=== PATIENT | female | born 1990 | race African-American/Black ===

== ENCOUNTER 2017-09-09 12:05 | Emergency (ER) | payer OTHER ==
[2017-09-09 12:19] VITALS: BMI 28.9
[2017-09-09] MEDS ORDERED: morphine CARPU-JECT 4 MG/1 ML DISP.SYRIN IVPUSH ONE (12:29)
[2017-09-09] MEDS ORDERED: SODIUM CHLORIDE 1,000 ML IV ONE (12:29)
[2017-09-09] MEDS ORDERED: ONDANSETRON 4 MG/2 ML VIAL IVPB ONE (12:29)
[2017-09-09] MEDS ORDERED: ONDANSETRON 4 MG/2 ML VIAL ONE (12:40)
[2017-09-09 12:44] LABS: BASO % 0.3 % (0-2.0); EOS % 2.1 % (0-4.5); HEMATOCRIT 36.2 % (32.4-45.2); HEMOGLOBIN 11.6 GM/dL (10.7-15.3); LYMPH % 35.6 % (8-40); MCH 26.4 pg (25.7-33.7); MCHC 32.2 g/dl (32.0-36.0); MEAN CELL VOLUME 82.1 fl (80-96); MEAN PLT VOLUME 8.9 fl (7.5-11.1); MONO % 7.7 % (3.8-10.2); NEUT % 54.3 % (42.8-82.8); PLATELET COUNT 275 K/MM3 (134-434); RBC 4.41 M/mm3 (3.60-5.2); RDW 13.2 % (11.6-15.6); WHITE BLOOD COUNT 5.2 K/mm3 (4.0-10.0)
--- NOTE | 2017-09-09 12:45 | PDOC ---
History of Present Illness - General History Source: Patient Exam Limitations: No Limitations - History of Present Illness Initial Comments: 09/09/17 12:49 The patient is a 27 year old female, with a significant PMH of gallstones, who presents to the emergency department via EMS complaining of abdominal pain. The patient states that she was at work when her pain began. She describes the pain as constant, located in the right upper quadrant, sharp in sensation, 10/10 in severity, radiating to her back, and exacerbated with deep inspiration and when she lies flat. Patient reports she threw up several times today, nonbloody and nonbilious, and notices a decrease in appetite. Patient notes pain is similar to the gallbladder attack 1 year ago where she stayed in the hospital for 4 days and was put on a low fat diet. The patient denies chest pain, shortness of breath, headache and dizziness. Denies fever, chills, diarrhea and constipation. Denies dysuria, frequency, urgency and hematuria. Allergies: NKDA, Seasonal allergies Past surgical history: None reported Social history: None reported PCP: None reported <Neetu Anguiano - Last Filed: 09/09/17 12:49> <Starla Bai - Last Filed: 09/09/17 15:55> <Juan Miguel Heard - Last Filed: 09/09/17 16:44> - General Chief Complaint: Pain, Acute Stated Complaint: ABD PAIN Time Seen by Provider: 09/09/17 12:13 Past History <Neetu Anguiano - Last Filed: 09/09/17 12:49> <Starla Bai - Last Filed: 09/09/17 15:55> - Suicide/Smoking/Psychosocial Hx Smoking History: Never smoked Hx Alcohol Use: No Drug/Substance Use Hx: No <Juan Miguel Heard - Last Filed: 09/09/17 16:44> - Past Medical History Allergies/Adverse Reactions: Allergies Allergy/AdvReac Type Severity Reaction Status Date / Time No Known Allergies Allergy Verified 09/09/17 12:19 Home Medications: Ambulatory Orders NK [No Known Home Medication] 09/09/17 Review of Systems - Review of Systems Constitutional: No: Chills, Fever Respiratory: No: Cough, Shortness of Breath Cardiac (ROS): No: Chest Pain ABD/GI: Yes: See HPI, Nausea, Vomiting. No: Constipated, Diarrhea : No: Dysuria, Frequency, Hematuria All Other Systems: Reviewed and Negative <Juan Miguel Heard - Last Filed: 09/09/17 16:44> *Physical Exam - Vital Signs Last Vital Signs Temp Pulse Resp BP Pulse Ox 97.4 F L 65 18 155/90 100 09/09/17 12:15 09/09/17 12:15 09/09/17 12:15 09/09/17 12:15 09/09/17 12:15 - Physical Exam Comments: 09/09/17 12:50 GENERAL: The patient is awake, alert, and fully oriented, in no acute distress. HEAD: Normal with no signs of trauma. EYES: Pupils equal, round and reactive to light, extraocular movements intact, sclera anicteric, conjunctiva clear with no pallor. ENT: Ears normal, nares patent, oropharynx clear without exudates. Moist mucous membranes. NECK: Normal range of motion, supple without lymphadenopathy, JVD, or masses. LUNGS: Breath sounds equal, clear to auscultation bilaterally. No wheeze/ crackles. HEART: Regular rate and rhythm, normal S1 and S2 without murmur or rub. ABDOMEN: +RUQ pain, +guarding. Soft/nontender/nondistended. BS wnl. No CVA tenderness. No palpable masses. No hepatosplenomegaly. EXTREMITIES: Normal range of motion, no edema. No clubbing or cyanosis. No cords, erythema, or tenderness. NEUROLOGICAL: Cranial nerves II through XII grossly intact. Normal speech, normal gait. PSYCH: Normal mood, normal affect. SKIN: Warm, Dry, normal turgor, no rashes or lesions noted. <Neetu Anguiano - Last Filed: 09/09/17 12:49> - Vital Signs Last Vital Signs Temp Pulse Resp BP Pulse Ox 97.4 F L 65 18 155/90 100 09/09/17 12:15 09/09/17 12:15 09/09/17 12:15 09/09/17 12:15 09/09/17 12:15 <Starla Bai - Last Filed: 09/09/17 15:55> - Vital Signs Last Vital Signs Temp Pulse Resp BP Pulse Ox 97.4 F L 65 18 155/90 100 09/09/17 12:15 09/09/17 12:15 09/09/17 12:15 09/09/17 12:15 09/09/17 12:15 <Juan Miguel Heard - Last Filed: 09/09/17 16:44> Heart Score/ECG Review #1 ECG reviewed & interpreted by me at: 12:48 General ECG Interpretation: Sinus Rhythm, Normal Rate (59), Normal Intervals ( qtc 421), No acute ischemic changes (TWI inferior and V5V6 leads) <Juan Miguel Heard - Last Filed: 09/09/17 16:44> ED Treatment Course - LABORATORY CBC & Chemistry Diagram: 09/09/17 12:38 09/09/17 12:38 - ADDITIONAL ORDERS Additional order review: 09/09/17 12:38 RBC 4.41 MCV 82.1 MCHC 32.2 RDW 13.2 MPV 8.9 Neutrophils % 54.3 Lymphocytes % 35.6 Monocytes % 7.7 Eosinophils % 2.1 Basophils % 0.3 - Medications Given in the ED: ED Medications Discontinued Medications Generic Name Dose Route Start Last Admin Trade Name Freq PRN Reason Stop Dose Admin Ondansetron HCl 8 mg 09/09/17 12:29 09/09/17 12:45 Zofran Injection IVPB 09/09/17 12:30 8 mg ONCE ONE Administration <Neetu Anguiano - Last Filed: 09/09/17 12:49> - LABORATORY CBC & Chemistry Diagram: 09/09/17 12:38 09/09/17 12:38 - ADDITIONAL ORDERS Additional order review: Laboratory Results 09/09/17 09/09/17 09/09/17 15:11 12:38 12:38 PT with INR 12.70 INR 1.12 Sodium Potassium Chloride Carbon Dioxide Anion Gap BUN Creatinine Creat Clearance w eGFR Random Glucose Calcium Magnesium Total Bilirubin Direct Bilirubin AST ALT Alkaline Phosphatase Total Protein Albumin Lipase Serum , Qual Urine Color Ltyellow Urine Appearance Clear Urine pH 6.0 Ur Specific [place] 1.015 Urine Protein Negative Urine Glucose (UA) Negative Urine Ketones Negative Urine Blood Negative Urine Nitrite Negative Urine Bilirubin Negative Urine Urobilinogen Negative Ur Leukocyte Esterase Negative Blood Type O POSITIVE Antibody Screen Negative 09/09/17 09/09/17 12:38 12:36 PT with INR INR Sodium 142 Potassium 4.3 Chloride 107 Carbon Dioxide 27 Anion Gap 8 BUN 8 Creatinine 0.6 Creat Clearance w eGFR > 60 Random Glucose 85 Calcium 9.1 Magnesium 1.9 Total Bilirubin 0.4 Direct Bilirubin 0.2 AST 61 H ALT 39 Alkaline Phosphatase 75 Total Protein 7.2 Albumin 3.8 Lipase 135 Serum , Qual Negative Urine Color Urine Appearance Urine pH Ur Specific [place] Urine Protein Urine Glucose (UA) Urine Ketones Urine Blood Urine Nitrite Urine Bilirubin Urine Urobilinogen Ur Leukocyte Esterase Blood Type Antibody Screen 09/09/17 12:38 RBC 4.41 MCV 82.1 MCHC 32.2 RDW 13.2 MPV 8.9 Neutrophils % 54.3 Lymphocytes % 35.6 Monocytes % 7.7 Eosinophils % 2.1 Basophils % 0.3 - Medications Given in the ED: ED Medications Discontinued Medications Generic Name Dose Route Start Last Admin Trade Name Freq PRN Reason Stop Dose Admin Sodium Chloride 1,000 mls @ 1,000 mls/hr 09/09/17 12:29 09/09/17 12:45 Normal Saline - IV 09/09/17 13:28 1,000 mls/hr ONCE ONE Administration Morphine Sulfate 4 mg 09/09/17 12:29 09/09/17 13:05 Morphine Injection - IVPUSH 09/09/17 12:30 4 mg ONCE ONE Administration Ondansetron HCl 8 mg 09/09/17 12:29 09/09/17 12:45 Zofran Injection IVPB 09/09/17 12:30 8 mg ONCE ONE Administration <Starla Bai - Last Filed: 09/09/17 15:55> - LABORATORY CBC & Chemistry Diagram: 09/09/17 12:38 09/09/17 12:38 - RADIOLOGY Radiology Studies Ordered: Category Date Time Status GALLBLADDER US [US] Stat Ultrasound 09/09/17 12:30 Ordered <Juan Miguel Heard - Last Filed: 09/09/17 16:44> Medical Decision Making - Medical Decision Making 09/09/17 15:55 Dr. Aggarwal was paged and notified via phone service. <Starla Bai - Last Filed: 09/09/17 15:55> - Medical Decision Making 09/09/17 12:41 27-year-old female with history of gallstones presents with acute onset of right upper quadrant pain with nausea/vomiting about one hour ago while at work. Pain is sharp, constant, radiating to the right back. Pain is similar to single prior episode of biliary colic that she had about one year ago, which lead to a hospitalization. She was conservatively managed at that time with diet change and has been asx since then until this morning. Last meal was last night, no f/c. no urinary complaints, no injuries. Afebrile. No jaundice or pallor Moderate distress seated in stretcher secondary to right upper quadrant pain No CVA tenderness, tender to palpation in the right upper quadrant 27-year-old female with history of gallstones presents with acute onset right upper quadrant pain with nausea/vomiting concerning for biliary colic, rule out cholecystitis. Renal and cardiology seems less likely. Labs, urinalysis Pain control, nausea control, IV fluids Right upper quadrant ultrasound Reassess 09/09/17 15:30 labs wnl, minimally elevated AST. UA pending. Ultrasound read pending but on my prelim review, multiple gallstones. Pt's pain markedly improved and resolved after morphine, nontender abdomen on exam now. EKG with TWI inferior and lateral leads. No prior EKG available for comparison. In the absence of cardiopulmonary complaints, not consistent with acute coronary ischemia. 09/09/17 16:15 ultrasound with cholelithiasis but no evidence of cholecystitis or wall/duct thickening. pain resolved, no tenderness. PO trial then dispo. 09/09/17 16:42 Tolerated PO easily without nausea or pain. Abd exam remains benign. Agrees with d/c plan, will f/u with surgery and understands return criteria. <Juan Miguel Heard - Last Filed: 09/09/17 16:44> *DC/Admit/Observation/Transfer - Attestations Scribe Attestion: 09/09/17 12:51 Documentation prepared by Neetu Anguiano, acting as medical office administrator for Juan Miguel Heard MD. <Neetu Anguiano - Last Filed: 09/09/17 12:49> <Starla Bai - Last Filed: 09/09/17 15:55> <Juan Miguel Heard - Last Filed: 09/09/17 16:44> Diagnosis at time of Disposition: Right upper quadrant abdominal pain Cholelithiasis Qualifiers: Cholelithiasis location: gallbladder Cholecystitis presence: without cholecystitis Biliary obstruction: without biliary obstruction Qualified Code(s) : K80.20 - Calculus of gallbladder without cholecystitis without obstruction - Discharge Dispostion Disposition: HOME Condition at time of disposition: Improved - Referrals Referrals: Mc Corcoran MD [Staff Physician] - Nj Aggarwal MD [Staff Physician] - - Patient Instructions Printed Discharge Instructions: DI for Gallstones Additional Instructions: Activity as tolerated. Stay hydrated. Your pain is due to gallstones in your gallbladder. At this time, there is no evidence of other abnormality such as gallbladder blockage or infection. Eat a clear and low fat diet, but you should be evaluated by a surgeon because the gallbladder may need to be removed. Tylenol 1000 mg every 8 hours as needed for pain. You should follow up with your primary doctor and a General Surgeon as soon as possible regarding today's emergency department visit. Return to the emergency department for any new or concerning symptoms, particularly recurring pain, vomiting, fevers or chills.
[2017-09-09 12:57] LABS: INR 1.12 (0.82-1.09); PROTHROMBIN TIME (PATIENT) 12.7 SEC (9.7-13.0)
--- NOTE | 2017-09-09 12:58 | EKG ---
Test Reason : Blood Pressure : / mmHG Vent. Rate : 059 BPM Atrial Rate : 059 BPM P-R Int : 176 ms QRS Dur : 080 ms QT Int : 426 ms P-R-T Axes : 048 012 -10 degrees QTc Int : 421 ms SINUS BRADYCARDIA WITH SINUS ARRHYTHMIA T WAVE ABNORMALITY, CONSIDER INFERIOR ISCHEMIA ABNORMAL ECG NO PREVIOUS ECGS AVAILABLE Confirmed by MD ZANA, NAVEEN ([id number]) on 09/09/2017 12:58:26 PM Referred By: Confirmed By:NAVEEN SPANN MD
[2017-09-09] MEDS ORDERED: morphine SULFATE 4 MG/ML VIAL ONE (13:00)
[2017-09-09 13:08] LABS: ALBUMIN 3.8 g/dl (3.4-5.0); ALK PHOS 75 U/L (45-117); ANION GAP 8 (8-16); BILIRUBIN,DIRECT 0.2 mg/dL (0.0-0.2); BILIRUBIN,TOTAL 0.4 mg/dL (0.2-1.0); BLOOD UREA NITROGEN 8 mg/dL (7-18); CALCIUM 9.1 mg/dL (8.5-10.1); CHLORIDE 107 mmol/L (98-107); CO2 27 mmol/L (21-32); CREATININE 0.6 mg/dL (0.55-1.02); GLUCOSE,RANDOM 85 mg/dL (74-106); LIPASE 135 U/L (73-393); MAGNESIUM 1.9 mg/dL (1.8-2.4); POTASSIUM 4.3 mmol/L (3.5-5.1); SGOT/AST 61 U/L (15-37); SGPT/ALT 39 U/L (12-78); SODIUM 142 mmol/L (136-145); TOT PROT 7.2 g/dl (6.4-8.2)
[2017-09-09 15:32] LABS: URINE APPEARANCE CLEAR; URINE BILIRUBIN NEGATIVE (<2.0 mg/dL); URINE COLOR LTYELLOW; URINE GLUCOSE (UA) NEGATIVE (NEGATIVE); URINE KETONE NEGATIVE (NEGATIVE); URINE LEUK ESTERASE NEGATIVE (NEGATIVE); URINE NITRITE NEGATIVE (NEGATIVE); URINE PROTEIN NEGATIVE (NEGATIVE); URINE UROBILINOGEN NEGATIVE mg/dL (0.2-1.0)
[2017-09-09 17:28] VITALS: PULSE 68
[2017-09-09 17:31] VITALS: BP 140/89; TEMP 97.4
== END 2017-09-09 17:31 | disposition home or self-care (01) ==
LOC: JER 12:05
PROC: 3E033GC Introduction of Other Therapeutic Substance into Peripheral Vein, Percutaneous Approach (ICD-10-PCS; principal; 2017-09-09)
PROC: 3E033NZ Introduction of Analgesics, Hypnotics, Sedatives into Peripheral Vein, Percutaneous Approach (ICD-10-PCS; 2017-09-09)
DX: K80.20 Calculus of gallbladder without cholecystitis without obstruction (principal)
CPT/HCPCS: 36415; 76705-TC; 80053; 81003; 82248; 83690; 83735; 84703; 85025; 85610; 86850; 86900; 86901; 93005; 93010; 96374; 96375; 99283-25; J7030